=== PATIENT | male | born 1940 | race Caucasian/White ===

== ENCOUNTER → 2020-11-13 14:20 | Outpatient (BNVA) | payer MEDICARE, SELFPAY | PROVIDERS: Referring Provider Nurse Practitioner Family; Visit Provider Nurse Practitioner Family | DX: E87.1 Hypo-osmolality and hyponatremia (principal) | CPT/HCPCS: 71046 ==

== ENCOUNTER → 2022-01-22 10:59 | Outpatient (BNVA) | payer MEDICARE, SELFPAY | PROVIDERS: PCP Nurse Practitioner Family; Visit Provider Internal Medicine Rheumatology | DX: Z79.899 Other long term (current) drug therapy (principal); M10.9 Gout, unspecified; M15.9 Polyosteoarthritis, unspecified; L40.3 Pustulosis palmaris et plantaris; Z11.59 Encounter for screening for other viral diseases; Z11.1 Encounter for screening for respiratory tuberculosis; Z71.85 Encounter for immunization safety counseling | CPT/HCPCS: 73130; 73630; 99204 ==

== ENCOUNTER → 2022-01-26 10:45 | Outpatient (BNVA) | payer MEDICARE, SELFPAY | PROVIDERS: PCP Nurse Practitioner Family; Visit Provider Internal Medicine Rheumatology | DX: M19.90 Unspecified osteoarthritis, unspecified site (principal); Z79.899 Other long term (current) drug therapy; M10.9 Gout, unspecified; Z11.59 Encounter for screening for other viral diseases | CPT/HCPCS: 84550; 85651; 86140; 86200; 86431; 86480; 86704; 86803; 87340 ==

== ENCOUNTER → 2022-04-23 11:05 | Outpatient (BNVA) | payer MEDICARE, SELFPAY | PROVIDERS: PCP Nurse Practitioner Family; Visit Provider Internal Medicine Rheumatology | DX: M05.79 Rheumatoid arthritis with rheumatoid factor of multiple sites without organ or systems involvement (principal); M54.2 Cervicalgia | CPT/HCPCS: 72040 ==

== ENCOUNTER → 2022-04-27 10:19 | Outpatient (BNVA) | payer MEDICARE, SELFPAY | PROVIDERS: PCP Nurse Practitioner Family; Visit Provider Internal Medicine Rheumatology | DX: M05.79 Rheumatoid arthritis with rheumatoid factor of multiple sites without organ or systems involvement (principal); Z79.899 Other long term (current) drug therapy | CPT/HCPCS: 80076; 82565; 85025; 86140 ==

== ENCOUNTER → 2022-06-01 12:53 | Outpatient (BNVA) | payer MEDICARE, SELFPAY | PROVIDERS: PCP Nurse Practitioner Family; Visit Provider Internal Medicine Rheumatology | DX: M06.041 Rheumatoid arthritis without rheumatoid factor, right hand (principal); M06.042 Rheumatoid arthritis without rheumatoid factor, left hand; Z79.899 Other long term (current) drug therapy | CPT/HCPCS: 80076 ==

== ENCOUNTER → 2022-06-22 14:12 | Outpatient (BNVA) | payer MEDICARE, SELFPAY | PROVIDERS: PCP Nurse Practitioner Family; Visit Provider Internal Medicine Rheumatology | DX: M06.041 Rheumatoid arthritis without rheumatoid factor, right hand (principal); M06.042 Rheumatoid arthritis without rheumatoid factor, left hand | CPT/HCPCS: 72100; 72202 ==

== ENCOUNTER → 2022-07-01 12:39 | Outpatient (BNVA) | payer MEDICARE, SELFPAY | PROVIDERS: PCP Nurse Practitioner Family; Visit Provider Internal Medicine Rheumatology | DX: M06.041 Rheumatoid arthritis without rheumatoid factor, right hand (principal); M06.042 Rheumatoid arthritis without rheumatoid factor, left hand; L40.50 Arthropathic psoriasis, unspecified; L40.3 Pustulosis palmaris et plantaris; Z79.899 Other long term (current) drug therapy; Z71.85 Encounter for immunization safety counseling | CPT/HCPCS: 96372; 99214; J1885 ==

== ENCOUNTER 2022-07-07 13:27 | Outpatient (CLI) | payer MEDICARE, SELFPAY ==
--- NOTE | 2022-07-07 14:00 | XR_ITS ---
WS: [id number] SCREENING DEXA SCAN mobile mum CLINICAL INFORMATION: M81.0 - Age-related osteoporosis without current patholog... COMPARISON: None. FINDINGS: The L1-L4 bone mineral density measures 1.036 g/cm2. This corresponds to a T score score of -1.5 and Z score of -0.9. Left femoral neck bone mineral density measures 0.808 g/cm2. This corresponds to a T score of -2.0 an d Z score of -0.8. Right femoral neck bone mineral density measures 0.764 g/cm2. This corresponds to a T score -2.3of an d Z score of -1.1. Mean femoral neck bone mineral density measures 0.786 g/cm2. This corresponds to a T score of -2.2 an d Z score of -0.9. XR/XR DEXA axial skeleton* [id number] IMPRESSION: Osteopenia lumbar spine. Osteopenia femoral necks. Patient's FRAX calculated 10 year probability for major osteoporotic fracture i s 19.7 % and osteoporotic hip fracture is 11.1%.
== END 2022-07-07 13:28 | disposition home or self-care (01) ==
PROVIDERS: PCP Nurse Practitioner Family; Visit Provider Internal Medicine Rheumatology
DX: M81.0 Age-related osteoporosis without current pathological fracture (principal); M85.89 Other specified disorders of bone density and structure, multiple sites
CPT/HCPCS: 77080

== ENCOUNTER → 2022-09-17 11:32 | Outpatient (BNVA) | payer MEDICARE, SELFPAY | PROVIDERS: PCP Nurse Practitioner Family; Visit Provider Internal Medicine Rheumatology | DX: M06.041 Rheumatoid arthritis without rheumatoid factor, right hand (principal); M06.042 Rheumatoid arthritis without rheumatoid factor, left hand; Z79.899 Other long term (current) drug therapy; L40.50 Arthropathic psoriasis, unspecified; L40.3 Pustulosis palmaris et plantaris; Z71.85 Encounter for immunization safety counseling; M81.0 Age-related osteoporosis without current pathological fracture | CPT/HCPCS: 80076; 82565; 85025; 86140 ==

== ENCOUNTER → 2022-12-21 15:59 | Outpatient (BNVA) | payer MEDICARE, SELFPAY | PROVIDERS: PCP Nurse Practitioner Family; Referring Provider Internal Medicine Rheumatology; Visit Provider Internal Medicine Rheumatology | DX: L40.50 Arthropathic psoriasis, unspecified (principal); M81.0 Age-related osteoporosis without current pathological fracture; M06.041 Rheumatoid arthritis without rheumatoid factor, right hand; M06.042 Rheumatoid arthritis without rheumatoid factor, left hand; Z79.899 Other long term (current) drug therapy | CPT/HCPCS: 80076; 82565; 86140 ==

== ENCOUNTER → 2023-01-07 13:18 | Outpatient (BNVA) | payer MEDICARE, SELFPAY | PROVIDERS: PCP Nurse Practitioner Family; Referring Provider Internal Medicine Rheumatology; Visit Provider Internal Medicine Rheumatology | DX: M05.79 Rheumatoid arthritis with rheumatoid factor of multiple sites without organ or systems involvement (principal); Z79.899 Other long term (current) drug therapy; L40.50 Arthropathic psoriasis, unspecified | CPT/HCPCS: 80076; 82306; 82565; 84520; 85025; 86140 ==

== ENCOUNTER → 2023-05-26 13:51 | Outpatient (BNVA) | payer MEDICARE, SELFPAY | PROVIDERS: PCP Nurse Practitioner Family; Referring Provider Internal Medicine Rheumatology; Visit Provider Internal Medicine Rheumatology | DX: Z79.899 Other long term (current) drug therapy (principal); L40.50 Arthropathic psoriasis, unspecified | CPT/HCPCS: 80076; 82565; 85025; 86140 ==

== ENCOUNTER → 2024-01-27 14:39 | Outpatient (BNVA) | payer MEDICARE, SELFPAY | PROVIDERS: PCP Nurse Practitioner Family; Visit Provider Internal Medicine Rheumatology | DX: M25.551 Pain in right hip (principal) | CPT/HCPCS: 20610; J1010 ==

== ENCOUNTER → 2025-02-19 13:45 | Outpatient (BNVA) | payer MEDICARE, SELFPAY | PROVIDERS: PCP Nurse Practitioner Family; Visit Provider Internal Medicine Rheumatology | DX: L40.50 Arthropathic psoriasis, unspecified (principal); L40.3 Pustulosis palmaris et plantaris; Z71.85 Encounter for immunization safety counseling; Z79.899 Other long term (current) drug therapy; M81.0 Age-related osteoporosis without current pathological fracture | CPT/HCPCS: 36415; 80076; 82565; 85025; 85651; 86140; 86480; 99214 ==